=== PATIENT | female | born 1940 | race Caucasian/White ===

== ENCOUNTER → 2017-01-12 | Outpatient (CLI) | payer MEDICARE, OTHER ==
[~2017-01-12] MED LIST: ATEN5POW MC; FLUT9.9S NS; LORA5SOL4 PO; MELA1TAB SL
--- NOTE | 2017-01-12 12:19 | RAD ---
CT scan of the chest without contrast 01/12/2017 Clinical history: History of lung nodule. Technique: Unenhanced, contiguous, 3 mm axial sections were obtained through the chest and upper abdomen. One or more of the following individualized dose reduction techniques were utilized for this study: 1. Automated exposure control. 2. Adjustment of the mA and/or kV according to patient size. 3. Use of iterative reconstruction technique. Findings: Comparison is made to a CT scan of the abdomen dated 12/25/2014. Mild to moderate scattered atherosclerotic plaque formation is seen involving the thoracic aorta is branches. The thoracic aorta is mildly tortuous but tapers normally. Extensive coronary artery calcifications are seen. The heart is normal in size. No hilar, mediastinal or axillary lymphadenopathy is noted. There is a small to moderate-sized sliding hiatal hernia. A 8 mm pleural-based nodular opacity is seen involving the right lower lobe, unchanged. No additional pulmonary nodule is seen. No area of consolidation is noted. No pneumothorax or pleural effusion is seen. Images through the upper abdomen demonstrate moderate atherosclerotic calcification of the abdominal aorta. A 8 mm rounded low-attenuation lesion is seen involving the right lobe of the liver consistent with a hepatic cyst. Degenerative changes are seen involving the thoracic spine. Impression: Stable CT appearance of the 8 mm pleural-based nodular opacity involving the right lower lobe. No acute abnormality is seen.
== END | disposition home or self-care (01) ==
LOC: CT 09:49
PROVIDERS: ATTEND Family Medicine
DX: R91.1 Solitary pulmonary nodule (principal); I25.10 Atherosclerotic heart disease of native coronary artery without angina pectoris; K44.9 Diaphragmatic hernia without obstruction or gangrene; I70.0 Atherosclerosis of aorta; M47.894 Other spondylosis, thoracic region
CPT/HCPCS: 71250

== ENCOUNTER → 2017-06-11 | Outpatient (CLI) | payer MEDICARE, OTHER ==
--- NOTE | 2017-06-11 15:52 | RAD ---
DATE: June 11, 2017 EXAM: MAMMO EMILY SCREENING BILATERAL HISTORY: Screening study. COMPARISON: 2015 and 2017. This study was interpreted with the benefit of Computerized Aided Detection (CAD). 2-D digital mammographic views of both breasts were performed in the CC and MLO projections. 3-D digital tomosynthesis of both breasts were performed in the CC and MLO projections and reviewed on a computer workstation. FINDINGS: The breast parenchyma is scattered and mildly dense. There are no dominant suspicious masses, suspicious microcalcifications or evidence of architectural distortion. IMPRESSION: No mammographic indicators for malignancy. BI-RADS CATEGORY: 1 NEGATIVE RECOMMENDED FOLLOW-UP: 12M 12 MONTH FOLLOW-UP PQRS compliance statement: Patient information was entered into a reminder system with a target due date June 12, 2018 for the next mammogram. Mammography is a sensitive method for finding small breast cancers, but it does not detect them all and is not a substitute for careful clinical examination. A negative mammogram does not negate a clinically suspicious finding and should not result in delay in biopsying a clinically suspicious abnormality. "Our facility is accredited by the [employer] Mammography Program." The patient's breast density may affect the ability of mammography to detect breast cancer. There are 4 categories of breast density, A, B, C and D. Breast density A means that most of the breast tissue is replaced with adipose tissue and therefore is not dense. Breast density B means that the breast tissue is mildly dense and scattered. Breast density C means that the breast tissue is heterogeneously dense. Breast density D means that the breast tissue is very dense. Breast densities especially C and D may decrease the sensitivity of mammography to detect breast cancer. Therefore, the patient may benefit from 3-D breast mammography (3D breast tomography) as a part of their screening mammogram. Insurance may or may not pay for this additional imaging. The patient's breast density based on today's mammogram is category B.
== END | disposition home or self-care (01) ==
LOC: MAMMO 14:06
PROVIDERS: ATTEND Family Medicine
DX: Z12.31 Encounter for screening mammogram for malignant neoplasm of breast (principal)
CPT/HCPCS: 77063; 77067

== ENCOUNTER → 2017-08-02 | Outpatient (CLI) | payer MEDICARE, OTHER ==
--- NOTE | 2017-08-02 16:39 | RAD ---
Chest, 2 views, 08/02/2017: History: Cough The heart size is normal. There is a retrocardiac density suggesting a moderate sized hiatal hernia. There is tortuosity of the thoracic aorta. No pulmonary infiltrate is seen. There is no evidence of pleural fluid. Moderate degenerative change is present in the spine. IMPRESSION: 1. Moderate sized hiatal hernia. 2. No acute cardiopulmonary abnormality is detected.
== END | disposition home or self-care (01) ==
LOC: DXRAD 15:33
PROVIDERS: ATTEND Family Medicine
DX: K44.9 Diaphragmatic hernia without obstruction or gangrene (principal); I77.810 Thoracic aortic ectasia
CPT/HCPCS: 71046

== ENCOUNTER → 2017-08-13 | Outpatient (CLI) | payer MEDICARE, OTHER ==
--- NOTE | 2017-08-13 10:06 | RAD ---
CT sinus without contrast History: Sinus drainage, pain at left cheek and under the eye. Technique: CT of the sinuses was performed without intravenous contrast. Axial, sagittal, and coronal reconstructions were obtained. Exposure: One or more of the following individualized dose reduction techniques were utilized for this examination: 1. Automated exposure control 2. Adjustment of the mA and/or kV according to patient size 3. Use of iterative reconstruction technique Findings: There is mild mucosal thickening of the right ostiomeatal unit. Left ostiomeatal unit is patent. There is mild right maxillary sinus mucosal thickening. There is opacification of the inferior half of the left maxillary sinus. Within the left maxillary sinus secretions, curvilinear calcification is seen. Bilateral frontal sinuses are clear. Ethmoid air cells are clear as is the sphenoid sinus. No mucoperiosteal reaction is identified. IMPRESSION: 1. Moderate-severe left and mild right maxillary sinus disease. The left maxillary sinus secretions demonstrate presence of calcification. Electronically signed by: Aakash Iniguez MD (08/13/2017 10:03 AM) [place] [id number]
== END | disposition home or self-care (01) ==
LOC: CT 07:49
PROVIDERS: ATTEND Family Medicine
DX: J32.0 Chronic maxillary sinusitis (principal)
CPT/HCPCS: 70486

== ENCOUNTER → 2017-09-18 | Outpatient (CLI) | payer MEDICARE ==
--- NOTE | 2017-09-18 10:51 | RAD ---
EXAM: Maxillofacial bone CT without contrast. HISTORY: Sinusitis. TECHNIQUE: Computed tomographic images of the paranasal sinuses were obtained without contrast. *One or more of the following individualized dose reduction techniques were utilized for this examination: 1. Automated exposure control. 2. Adjustment of the mA and/or kV according to patient size. 3. Use of iterative reconstruction technique. COMPARISON: 08/13/2017. FINDINGS: There is a large left maxillary sinus mucous retention cyst containing calcification, suggesting a possible superimposed fungal etiology. There is no sinus air-fluid level. The ostiomeatal units are patent. The nasal septum is midline. The mastoid air cells are clear. The orbits are unremarkable. There is no mass effect or midline shift. There is no hydrocephalus. No calvarial lesion is seen. There is mild age-appropriate cerebral volume loss. There are tortuous cavernous internal carotid arteries, a normal variant. IMPRESSION: Stable large left maxillary sinus mucous retention cyst, possibly related to fungal sinusitis given the presence of calcification. Electronically signed by: Christina Roberts MD (09/18/2017 10:48 AM) [id number]
== END | disposition home or self-care (01) ==
LOC: CT 09:42
PROVIDERS: ATTEND Otolaryngology
DX: J32.0 Chronic maxillary sinusitis (principal); I10 Essential (primary) hypertension
CPT/HCPCS: 70486

== ENCOUNTER 2018-04-08 20:10 | Inpatient (IN) | payer MEDICARE ==
[~2018-04-08] VITALS: Ht 167.6 cm; Wt 72.7 kg
[~2018-04-08 20:10] MED LIST changes: -LORA5SOL4 PO; +LORA5SOL43 PO
--- NOTE | 2018-04-08 20:14 | ED.ADGEN ---
Past History Past Medical History: Hypertension, TIA Adult General Chief Complaint Chief Complaint "..I was at [employer].. and on way home at 530 or so.. I noticed I was having problems remembering.. I could not remember the name of my granddaughter.. or my son in law... was a little confused.. I had trouble finding the words.. I could not order my hamburger.. [place] fries... I just could not find the word.. If some told me or reminded me I could say the word without problems.. I had a episode like this about 12 yrs ago. . they said it was a TIA... " HPI HPI Patient is a 77 year old female who presents with above hx and complaints of memory and expressive aphasia. Episodes seem to start around 1730 hrs. and still present at 1900 hrs. Patient reports previous episode of TIA 12 years ago. At that time underwent a workup. Since that time she is on Plavix and a daily baby aspirin. Patient also has history of hypertension and cardiac disorder and follows with Dr. Guajardo. . Patient currently reports resolution of her symptoms. Family who accompany patient reports that she is back nearly to her baseline. Patient reports no weakness in the limbs or sensation changes. Patient normally follows with Dr. Dos Santos locally.. Patient denies any fever or chills. Patient denies any trauma. Review of Systems Review of Systems Constitutional: Denies fever or chills [] Eyes: Denies change in visual acuity, redness, or eye pain [] HENT: Denies nasal congestion or sore throat [] Respiratory: Denies cough or shortness of breath [] Cardiovascular: No additional information not addressed in HPI [] GI: Denies abdominal pain, nausea, vomiting, bloody stools or diarrhea [] : Denies dysuria or hematuria [] Musculoskeletal: Denies back pain or joint pain [] Integument: Denies rash or skin lesions [] Neurologic: Denies headache, focal weakness or sensory changes []complaints of memory lapses and expressive aphasia Endocrine: Denies polyuria or polydipsia [] All other systems were reviewed and found to be within normal limits, except as documented in this note. Family History Family History Noncontributory Current Medications Current Medications Current Medications Medications (Trade) Dose Ordered Sig/Wiley Start Time Stop Time Status Last Admin Dose Admin Enoxaparin Sodium (Lovenox 80mg Syringe) 70 mg 1X ONCE 04/08/18 21:15 04/08/18 21:16 DC 04/08/18 21:52 70 MG Ondansetron HCl (Zofran) 4 mg PRN Q4HRS PRN 04/08/18 21:45 04/09/18 21:44 Potassium Chloride (KCl Oral Soln) 40 meq 1X ONCE 04/08/18 21:45 04/08/18 21:46 DC 04/08/18 21:51 40 MEQ Allergies Allergies Allergies Coded Allergies Type Severity Reaction Last Updated Verified lisinopril Allergy Unknown 12/25/14 Yes Physical Exam Physical Exam Constitutional: no acute distress, non-toxic appearance. [] HENT: Normocephalic, atraumatic, bilateral external ears normal, oropharynx moist, no oral exudates, nose normal. []No temporal artery tenderness Eyes: PERRLA, EOMI, conjunctiva normal, no discharge. [] Neck: Normal range of motion, no tenderness, supple, no stridor. [] No bruits appreciated in carotids. Cardiovascular:Heart rate regular rhythm, no murmur [PMI to the left Lungs & Thorax: Bilateral breath sounds equal at apexes on auscultation [] Abdomen: Bowel sounds normal, soft, no tenderness, no masses, no pulsatile masses. [] Skin: Warm, dry, no erythema, no rash. [] Back: No tenderness, no CVA tenderness. [] Extremities: No tenderness, no cyanosis, no clubbing, ROM intact, no edema. [] Neurologic: Alert and oriented X 3, normal motor function, normal sensory function, no focal deficits noted other than her complaints of memory lapses and expressive aphasia. Director Of Analytical Development are equal. No problems with ambulation. Psychologic: Affect anxious, judgement normal, mood normal. [] Current Patient Data Vital Signs Vital Signs Date Time Temp Pulse Resp B/P (MAP) Pulse Ox O2 Delivery O2 Flow Rate FiO2 04/08/18 22:19 60 18 125/85 (98) 98 Room Air 04/08/18 20:18 98.4 Lab Results Laboratory Tests Test 04/08/18 20:23 04/08/18 20:45 White Blood Count 6.5 x10^3/uL (4.0-11.0) Red Blood Count 4.83 x10^6/uL (3.50-5.40) Hemoglobin 14.5 g/dL (12.0-15.5) Hematocrit 43.3 % (36.0-47.0) Mean Corpuscular Volume 90 fL (79-100) Mean Corpuscular Hemoglobin 30 pg (25-35) Mean Corpuscular Hemoglobin Concent 34 g/dL (31-37) Red Cell Distribution Width 13.7 % (11.5-14.5) Platelet Count 189 x10^3/uL (140-400) Neutrophils (%) (Auto) 60 % (31-73) Lymphocytes (%) (Auto) 30 % (24-48) Monocytes (%) (Auto) 6 % (0-9) Eosinophils (%) (Auto) 3 % (0-3) Basophils (%) (Auto) 1 % (0-3) Neutrophils # (Auto) 3.9 x10^3uL (1.8-7.7) Lymphocytes # (Auto) 2.0 x10^3/uL (1.0-4.8) Monocytes # (Auto) 0.4 x10^3/uL (0.0-1.1) Eosinophils # (Auto) 0.2 x10^3/uL (0.0-0.7) Basophils # (Auto) 0.1 x10^3/uL (0.0-0.2) Erythrocyte Sedimentation Rate 3 (0-25) Prothrombin Time 10.5 SEC (9.4-11.4) Prothrombin Time INR 1.1 (0.9-1.1) PTT 25 SEC (23-33) Sodium Level 139 mmol/L (136-145) Potassium Level 3.3 mmol/L (3.5-5.1) L Chloride Level 101 mmol/L (98-107) Carbon Dioxide Level 30 mmol/L (21-32) Anion Gap 8 (6-14) Blood Urea Nitrogen 16 mg/dL (7-20) Creatinine 0.8 mg/dL (0.6-1.0) Estimated GFR (Cockcroft-Gault) 69.9 Glucose Level 135 mg/dL (70-99) H Calcium Level 8.6 mg/dL (8.5-10.1) Magnesium Level 1.8 mg/dL (1.8-2.4) Ammonia 16 mcmol/L (11-34) Creatine Kinase 102 U/L (26-192) Troponin I Quantitative < 0.017 ng/mL (0-0.055) VI-Bfb-Z-Type Natriuretic Peptide 193 pg/mL (0-449) Ethyl Alcohol Level < 10 mg/dL (0-10) Urine Collection Type Unknown Urine Color Straw Urine Clarity Clear Urine pH 6.0 Urine Specific [place] <=1.005 Urine Protein Neg (NEG-TRACE) Urine Glucose (UA) Neg mg/dL (NEG) Urine Ketones (Stick) Neg mg/dL (NEG) Urine Blood Small (NEG) Urine Nitrite Neg (NEG) Urine Bilirubin Neg (NEG) Urine Urobilinogen Dipstick 0.2 mg/dL (0.2 mg/dL) Urine Leukocyte Esterase Trace (NEG) Urine RBC 1-2 /HPF (0-2) Urine WBC 1-4 /HPF (0-4) Urine Squamous Epithelial Cells Few /LPF Urine Bacteria 0 /HPF (0-FEW) Urine Opiates Screen Neg (NEG) Urine Methadone Screen Neg (NEG) Urine Barbiturates Neg (NEG) Urine Phencyclidine Screen Neg (NEG) Urine Amphetamine/Methamphetamine Neg (NEG) Urine Benzodiazepines Screen Neg (NEG) Urine Cocaine Screen Neg (NEG) Urine Cannabinoids Screen Neg (NEG) Urine Ethyl Alcohol Neg (NEG) EKG EKG My interpretation of EKG shows a sinus rhythm at 65 bpm. There is some nonspecific anterior septal changes. But no findings of acute STEMI with contralateral changes[] Radiology/Procedures Radiology/Procedures My interpretation chest x-ray shows no acute cardio pulmonary findings. My interpretation of CT of head shows no shift, mass, edema, bleed or fracture. No obvious findings of acute CVA. Review formal report when available. Carotid Dopplers completed in the emergency department showed no significant plaque. See formal report when available Course & Med Decision Making Course & Med Decision Making Pertinent Labs and Imaging studies reviewed. (See chart for details) Discussed presentation, testing and treatment plan with . Will admit for further eval. and tx. Obtain Neuro consult. [] Final Impression Final Impression 1. Mental Status Change 2. TIA 3. Hypokalemia 3.3 4. [Hx. HTN Dragon Disclaimer Dragon Disclaimer This electronic medical record was generated, in whole or in part, using a voice recognition dictation system. CHARLIE PANIAGUA MD Apr 08, 2018 20:14
--- NOTE | 2018-04-08 20:49 | RAD ---
CT Head W/O Contrast: History: Mental status change, memory loss Comparison: none Axial images were obtained without contrast. There is mild diffuse atrophy. There is no mass effect, extraaxial fluid collections or hydrocephalus. There is no gross bleed. Mild, patchy periventricular and subcortical white matter hypoattenuation is seen. There is no focal loss of mota-white matter distinction to suggest acute ischemia, i.e. stroke. Impression: No acute findings. PQRS Compliance Statement: One or more of the following individualized dose reduction techniques were utilized for this examination: 1. Automated exposure control 2. Adjustment of the mA and/or kV according to patient size 3. Use of iterative reconstruction technique Electronically signed by: Uriel Ruiz III, MD (04/08/2018 8:45 PM) [facility]
[2018-04-08 20:50] LABS: BASO # 0.1 x10^3/uL (0.0-0.2); BASO % 1 % (0-3); EOS # 0.2 x10^3/uL (0.0-0.7); EOS % 3 % (0-3); HEMATOCRIT 43.3 % (36.0-47.0); HEMOGLOBIN 14.5 g/dL (12.0-15.5); LYMPH % 30 % (24-48); MEAN CORPUSCULAR HEMOGLOBIN 30 pg (25-35); MEAN CORPUSCULAR HGB CONC 34 g/dL (31-37); MEAN CORPUSCULAR VOLUME 90 fL (79-100); MONO # 0.4 x10^3/uL (0.0-1.1); MONO % 6 % (0-9); NEUT # 3.9 x10^3uL (1.8-7.7); NEUT % 60 % (31-73); PLATELET COUNT 189 x10^3/uL (140-400); RED BLOOD COUNT 4.83 x10^6/uL (3.50-5.40); RED CELL DISTRIBUTION WIDTH 13.7 % (11.5-14.5); WHITE BLOOD COUNT 6.5 x10^3/uL (4.0-11.0)
--- NOTE | 2018-04-08 21:07 | EKG ---
[address] [address] Test Date: 2018-04-08 Test Time: 21:04:31 Pat Name: JUS FARIAS Department: Room: Gender: F Consulting Solution Manager: : 1940 Requested By: CHARLIE PANIAGUA Order Number: [id number] Reading MD: Terry Beckham Measurements Intervals [place] Rate: 65 P: 45 [place]: 214 QRS: 12 QRSD: 84 T: 18 QT: 394 QTc: 410 Interpretive Statements SINUS RHYTHM NONSPECIFIC ST-T WAVE CHANGES. Electronically Signed On 04-10-2018 9:14:55 DELIVERY ROOM SUPERVISOR by Terry Beckham
[2018-04-08 21:12] LABS: CALCIUM 8.6 mg/dL (8.5-10.1); CREATININE 0.8 mg/dL (0.6-1.0); GFR 69.9; MAGNESIUM 1.8 mg/dL (1.8-2.4); POTASSIUM 3.3 mmol/L (3.5-5.1)
[2018-04-08] MEDS ORDERED: ENOXAPARIN ** NOTE DOSE ** SYRINGE SQ ONE (21:15)
[2018-04-08 21:34] LABS: AMPHETAMINE/METHAMPHETAMINE NEG (NEG); BARBITURATES NEG (NEG); BENZODIAZEPINES NEG (NEG); CANNABINOIDS NEG (NEG); COCAINE NEG (NEG); METHADONE NEG (NEG); OPIATES NEG (NEG); PHENCYCLIDINE NEG (NEG)
[2018-04-08] MEDS ORDERED: POTASSIUM CHLORIDE 20 MEQ/15 ML ORAL LIQUID. PO ONE (21:45)
[2018-04-08] MEDS ORDERED: ONDANSETRON PF 4 MG/2 ML VIAL. IV PRN (21:45)
[2018-04-08 21:46] LABS: BACTERIA,URINE 0 /HPF (0-FEW); BILIRUBIN,URINE NEG (NEG); CLARITY,URINE CLEAR; COLOR,URINE STRAW; GLUCOSE,URINE NEG (NEG); NITRITE,URINE NEG (NEG); SQUAMOUS EPITHELIAL CELL,UR FEW /LPF; UROBILINOGEN,URINE 0.2 mg/dL (0.2 mg/dL)
[2018-04-08 22:34] LABS: SEDIMENTATION RATE 3 (0-25)
[2018-04-08] MEDS ORDERED: CEPHALEXIN 250 MG CAPSULE PO ONE (23:00)
--- NOTE | 2018-04-08 23:32 | RAD ---
Bilateral Duplex Carotid Ultrasound Indication: MEMOREY LOSS, ALTERED MENTAL STATUS Procedure: Two dimensional, duplex and color-flow images and spectral analysis are obtained of the carotid arteries bilaterally. Vertebral arteries are also imaged. Findings: Right Carotid: The 2 D images demonstrate mild plaquing with no evidence of significant narrowing. The color images are normal without turbulence or jet effect. On the right ICA peak systolic velocity is 108 cm/sec. I The ICA/CCA ratio is 1.1 . Left Carotid: The 2 D images demonstrate mild plaquing with no evidence of significant narrowing. The color images are normal without turbulence or jet effect. On the left ICA peak systolic velocity is 62 cm/sec. The ICA/CCA ratio is 0.9 . Vertebral Arteries: The right vertebral artery is normal with normal direction of flow. The left vertebral artery is normal with normal direction of flow. Impression: Normal carotid ultrasound with no hemodynamically significant stenosis. PQRS Compliance Statement - Stenosis calculations for CT, MR and conventional angiography are based upon measurement of the distal ICA diameter in accordance with the NASCET methodology. Stenosis calculations for carotid ultrasound studies are derived from validated velocity criteria which are known to correlate with the NASCET methodology. Electronically signed by: Uriel Ruiz III, MD (04/08/2018 11:29 PM) [facility]
[2018-04-08 23:44] VITALS: BP 128/79
--- NOTE | 2018-04-08 23:44 | RAD ---
PORTABLE CHEST 1V Clinical History: Mental status change, memory loss Technique: AP view of the chest was obtained at 04/08/2018 8:14 PM. Comparison: August 02, 2017. Findings: The cardiomediastinal silhouette is normal. The pulmonary vasculature is normal. The lungs and pleural margins are clear. There is a moderate size hiatal hernia. Impression: No evidence of an acute cardiopulmonary process. Electronically signed by: Uriel Ruiz III, MD (04/08/2018 11:41 PM) [facility]
[2018-04-09] MEDS ORDERED: CHOL2000 PO (00:53)
[2018-04-09] MEDS ORDERED: CELE-20 PO (00:53)
[2018-04-09] MEDS ORDERED: LACT1CAP21 PO (00:53)
[2018-04-09] MEDS ORDERED: ATOR40TA59 PO (00:53)
[2018-04-09] MEDS ORDERED: ESOM20CA PO (00:53)
[2018-04-09] MEDS ORDERED: GLUC100018 PO (00:53)
[2018-04-09] MEDS ORDERED: LEVO50TA5 PO (00:53)
[2018-04-09] MEDS ORDERED: LORA10TA68 PO (00:53)
[2018-04-09] MEDS ORDERED: CLOP75TA PO (00:53)
[2018-04-09] MEDS ORDERED: ASPI81TA50 PO (00:53)
[2018-04-09] MEDS ORDERED: ATEN25TA PO (00:53)
[2018-04-09] MEDS ORDERED: LOSA50TA7 PO (00:53)
[2018-04-09 05:25] VITALS: BP 119/61
[2018-04-09] MEDS ORDERED: LEVOTHYROXINE 50 MCG TABLET PO SCH ×2 (06:00→10:00)
[2018-04-09 06:42] LABS: CALCIUM 8.4 mg/dL (8.5-10.1); CREATININE 0.8 mg/dL (0.6-1.0); GFR 69.9; POTASSIUM 4.1 mmol/L (3.5-5.1)
[2018-04-09 06:48] LABS: BASO % 1 % (0-3); EOS # 0.2 x10^3/uL (0.0-0.7); EOS % 3 % (0-3); HEMOGLOBIN 12.8 g/dL (12.0-15.5); LYMPH # 2.1 x10^3/uL (1.0-4.8); LYMPH % 41 % (24-48); MEAN CORPUSCULAR HEMOGLOBIN 30 pg (25-35); MEAN CORPUSCULAR HGB CONC 34 g/dL (31-37); MEAN CORPUSCULAR VOLUME 89 fL (79-100); MONO # 0.4 x10^3/uL (0.0-1.1); MONO % 7 % (0-9); NEUT # 2.5 x10^3uL (1.8-7.7); NEUT % 48 % (31-73); PLATELET COUNT 170 x10^3/uL (140-400); RED BLOOD COUNT 4.25 x10^6/uL (3.50-5.40); RED CELL DISTRIBUTION WIDTH 13.5 % (11.5-14.5); WHITE BLOOD COUNT 5.1 x10^3/uL (4.0-11.0)
[2018-04-09] MEDS ORDERED: LEVOTHYROXINE 50 MCG TABLET ONE (07:50)
[2018-04-09] MEDS ORDERED: LEVOTHYROXINE 75 MCG TABLET ONE (07:50)
[2018-04-09] MEDS ORDERED: PANTOPRAZOLE 40 MG TABLET. PO ONE (07:50)
[2018-04-09] MEDS ORDERED: GLUCOSAMINE 500 MG CAPSULE PO SCH (09:00)
[2018-04-09] MEDS ORDERED: ASPIRIN 81 MG TAB.CHEW PO SCH (09:00)
[2018-04-09] MEDS ORDERED: CLOPIDOGREL BISULFATE 75 MG TABLET PO SCH ×2 (09:00)
[2018-04-09] MEDS ORDERED: ENOXAPARIN ** NOTE DOSE ** SYRINGE SQ SCH (09:00)
[2018-04-09] MEDS ORDERED: LACTOBACILLUS RHAMNOSUS GG 1 CAPSULE. PO SCH (09:00)
[2018-04-09] MEDS ORDERED: LOSARTAN 50 MG TABLET. PO SCH (09:00)
[2018-04-09] MEDS ORDERED: CHOLECALCIFEROL (VITAMIN D3) 1,000 UNIT TABLET PO SCH (09:00)
[2018-04-09] MEDS ORDERED: CELECOXIB 100 MG CAPSULE PO SCH (09:00)
[2018-04-09 10:58] VITALS: BP 117/80
--- NOTE | 2018-04-09 12:54 | SSS ---
ADMIT DATE: 04/09/2018 HISTORY OF PRESENT ILLNESS: The patient is a 77-year-old female patient, who basically was brought to the Emergency Room complaining of having trouble finding the words. After she finished her yoga she went to [facility], but could not remember her favorite hamburger and apparently she had similar episode about 12 years ago. At that time, her episode started about and she arrived to the Emergency Room about 7:00. The patient's previous episode of TIA was about 12 years ago. At that time, she underwent a workup and since that time she is on Plavix and daily baby aspirin. The patient also has history of hypertension, cardiac disorder, and follows with Dr. Guajardo. By the time she arrived to the Emergency Room her symptoms have resolved and her family apparently stated that she is back to her baseline. Denied any tingling or numbness. Denied any loss of sensation or weakness. Denied any blurring of vision. Denied any fall or trauma. She was investigated in the Emergency Room. She had had CT scan of the head, which basically showed that there are no acute changes. She also was admitted and underwent bilateral carotid Doppler ultrasound and we did consult Dr. Blank; however, her symptoms have completely resolved and a decision was made to discharge her home to continue all her current medication. PAST MEDICAL HISTORY: Significant for transient ischemic attack about 12 years ago. She is known to have hypertension, hyperlipidemia, coronary artery disease, status post PCI with stent deployment, hypothyroidism, hiatal hernia and acid reflux and seasonal allergies. She is also known to have osteoarthritis. PAST SURGICAL HISTORY: Significant for PCI and stent deployment, total abdominal hysterectomy, tonsillectomy, bilateral cataract extraction, sinus surgery with polypectomy. She has surgery also on her left foot. She underwent also esophagogastroduodenoscopy and colonoscopy with polypectomy. ALLERGIES: She is allergic to LISINOPRIL. MEDICATIONS: She is currently on following medications: She is on cetirizine. She is on loratadine 10 mg once a day, atorvastatin calcium 40 mg once a day, atenolol 25 mg once a day, lactobacillus rhamnosus 1 capsule once a day, glucosamine sulfate 2000 mg daily, vitamin D 2000 international units once a day, Celebrex 200 mg once a day, losartan potassium 50 mg once a day, Plavix 75 mg once a day, aspirin 81 mg once a day and levothyroxine 50 mcg once a day. FAMILY HISTORY: One older brother healthy. Her half brother has COPD and other problems. Her father in his 40s due to myocardial infarction. Her mother in her 70s. SOCIAL HISTORY: She has 2 daughters and 1 son. She smoked for about 15 years, quit when she was 33 years old. She does not drink alcohol. She used to work as a social media senior associate. REVIEW OF SYSTEMS: The patient denied any blurring of vision. She has bilateral cataract extraction, but denied any glaucoma or macular degeneration. Denied any earache, tinnitus or sensorineural deafness. Denied any nosebleeds, stuffy nose or postnasal drip. Denied any sore throat, sore tongue, toothache, hoarseness of voice or difficulty swallowing. Denied any nausea, vomiting, diarrhea or constipation. Denied any hematemesis, melena or hematochezia. Denied any dysuria, frequency or hematuria. Denied any chest pain, shortness of breath, orthopnea, paroxysmal nocturnal dyspnea. Denied any cough, phlegm or hemoptysis. Denied chills, rigors or fever. PHYSICAL EXAMINATION: GENERAL: On examining her, she looked well and was clearly in no apparent respiratory distress. No pallor, jaundice, cyanosis, or thyromegaly. No jugular venous distension. No limb edema. VITAL SIGNS: Her heart rate was 58, blood pressure was 128/79, temperature was 98.2, respiratory rate was 18 and oxygen saturation was 95% on room air. HEAD, EYES, EARS, NOSE AND THROAT: Showed normocephalic, atraumatic. NECK: Supple. HEART: Showed normal first and second heart sounds with no gallop, rub or murmur. CHEST: Clear to auscultation. No crepitation or rhonchi. ABDOMEN: Slightly distended, soft, nontender. NEUROLOGIC: She was awake, alert, responding appropriately. All cranial nerves intact. EXTREMITIES: She moves her extremities without difficulty. She ambulates without assistance or assistive devices. LABORATORY DATA: On arrival showed a white cell count of 6500, hemoglobin 14.5, hematocrit 43, MCV 90, and platelet count of 189,000. Her serum sodium 140, potassium 4.1, chloride 104, bicarbonate 28, anion gap of 8, BUN 13, creatinine 0.8, estimated GFR was 70 mL per minute. Her glucose 113, calcium was 8.4. Her ammonia was 16. Troponin less than 0.017. Her beta natriuretic peptide was 193. Her prothrombin time was 10.5, INR 1.1, aPTT was 25. Her urinalysis was essentially unremarkable. Her toxic screen was essentially negative. She has had a CT scan of the head, which was basically unremarkable and showed mild diffuse atrophy. There is no mass effect, extraaxial fluid collection or hydrocephalus. There is no gross bleed, mild patchy periventricular and subcortical white matter hypoattenuation is seen. There is no focal loss of hawkins white matter distinction to suggest acute ischemia. She did have bilateral carotid Doppler ultrasound, which basically showed normal carotid ultrasound with no hemodynamically significant stenosis. Her chest x-ray showed that the cardiomediastinal silhouette is normal. The pulmonary vasculature is normal. The lungs and pleural images and margins are clear. There is moderate sized hiatal hernia. ASSESSMENT AND PLAN: In summary, this is a 77-year-old female patient came with suppressive aphasia that apparently lasted about 2 hours that her symptoms are completely resolved by the time she arrived to the Emergency Room. She was discharged back to continue all her medication and follow with the primary care physician. FINAL DISCHARGE DIAGNOSES: Transient ischemic attack, presented with increased aphasia that has resolved. She has hypertension, hyperlipidemia, coronary artery disease, status post PCI with stent deployment, hypothyroidism, osteoarthritis, hiatal hernia. FRANNIE SWANN MD DR: GARLAND/jose raul JOB#: [id number] / [id number]
[2018-04-09] MEDS ORDERED: ATENOLOL 25 MG TABLET PO SCH (21:00)
[2018-04-09] MEDS ORDERED: ATORVASTATIN CALCIUM 20 MG TABLET PO SCH (21:00)
[2018-04-09] MEDS ORDERED: CETIRIZINE HCL 10 MG TABLET PO SCH (21:00)
[2018-04-10] MEDS ORDERED: PANTOPRAZOLE 40 MG TABLET. PO SCH (07:30)
== END 2018-04-09 13:15 | disposition home or self-care (01) | DRG 69 ==
LOC: ER 20:10 → 1 SOUTH 22:45
PROVIDERS: ADMIT Internal Medicine; ATTEND Internal Medicine
DX: G45.9 Transient cerebral ischemic attack, unspecified (principal); R47.01 Aphasia; E03.9 Hypothyroidism, unspecified; E78.5 Hyperlipidemia, unspecified; I10 Essential (primary) hypertension; I25.10 Atherosclerotic heart disease of native coronary artery without angina pectoris; K21.9 Gastro-esophageal reflux disease without esophagitis; Z79.02 Long term (current) use of antithrombotics/antiplatelets; M19.90 Unspecified osteoarthritis, unspecified site; J30.2 Other seasonal allergic rhinitis; Z82.49 Family history of ischemic heart disease and other diseases of the circulatory system; Z82.5 Family history of asthma and other chronic lower respiratory diseases; Z86.73 Personal history of transient ischemic attack (TIA), and cerebral infarction without residual deficits; Z90.710 Acquired absence of both cervix and uterus; Z95.5 Presence of coronary angioplasty implant and graft; Z98.41 Cataract extraction status, right eye; Z98.42 Cataract extraction status, left eye; Z87.891 Personal history of nicotine dependence
CPT/HCPCS: 36415; 70450; 71045; 80048; 80061; 80307; 81001; 82140; 82550; 83735; 83880; 84484; 85025; 85610; 85651; 85730; 87040; 87086; 93005; 93880; G0480; J1650; 97116

== ENCOUNTER 2018-05-19 07:43 | Emergency (ER) | payer MEDICARE ==
[~2018-05-19] VITALS: Ht 167.6 cm; Wt 71.3 kg
[~2018-05-19 07:43] MED LIST changes: +ASPI81TA50 PO; +ATEN25TA42 PO; +ATOR40TA59 PO; +CELE-20 PO; +CHOL2000 PO; +CLOP75TA PO; +ESOM20CA PO; +GLUC100018 PO; +LACT1CAP21 PO; +LEVO50TA5 PO; +LORA10TA68 PO; +LOSA50TA86 PO
[2018-05-19] MEDS ORDERED: IV NORMAL SALINE 500ML 500 ML IV ONE (08:15)
[2018-05-19] MEDS ORDERED: ONDANSETRON PF 4 MG/2 ML VIAL. IV ONE (08:15)
[2018-05-19 08:37] LABS: BASO # 0.1 x10^3/uL (0.0-0.2); BASO % 1 % (0-3); EOS # 0.1 x10^3/uL (0.0-0.7); EOS % 1 % (0-3); HEMOGLOBIN 14.3 g/dL (12.0-15.5); LYMPH # 0.5 x10^3/uL (1.0-4.8); LYMPH % 5 % (24-48); MEAN CORPUSCULAR HEMOGLOBIN 30 pg (25-35); MEAN CORPUSCULAR HGB CONC 34 g/dL (31-37); MEAN CORPUSCULAR VOLUME 88 fL (79-100); MONO # 0.5 x10^3/uL (0.0-1.1); MONO % 5 % (0-9); NEUT # 8.4 x10^3uL (1.8-7.7); NEUT % 88 % (31-73); PLATELET COUNT 190 x10^3/uL (140-400); RED BLOOD COUNT 4.77 x10^6/uL (3.50-5.40); RED CELL DISTRIBUTION WIDTH 13.7 % (11.5-14.5); WHITE BLOOD COUNT 9.5 x10^3/uL (4.0-11.0)
--- NOTE | 2018-05-19 08:40 | EKG ---
[address] [address] Test Date: 2018-05-19 Test Time: 08:23:19 Pat Name: JUS FARIAS Department: Room: Gender: F Groover And Turner: YOVANA : 1940 Requested By: RAFAT HOWARD Order Number: [id number] Reading MD: Measurements Intervals [place] Rate: 71 P: 24 AL: 168 QRS: 14 QRSD: 90 T: 24 QT: 388 QTc: 422 Interpretive Statements SINUS RHYTHM NORMAL ECG RI6.01 Unconfirmed report No previous ECG available for comparison
[2018-05-19 08:53] LABS: ALBUMIN 3.4 g/dL (3.4-5.0); CALCIUM 8.5 mg/dL (8.5-10.1); CREATININE 0.8 mg/dL (0.6-1.0); GFR 69.9; POTASSIUM 4.1 mmol/L (3.5-5.1); TOTAL BILIRUBIN 1.3 mg/dL (0.2-1.0); TOTAL PROTEIN 6.9 g/dL (6.4-8.2)
--- NOTE | 2018-05-19 09:04 | RAD ---
PQRS Compliance statement: One or more of the following individualized dose reduction techniques were utilized for this examination: 1. Automated exposure control. 2. Adjustment of the mA and/or kV according to patient size. 3. Use of iterative reconstruction technique. Indication:Headache/dizziness with nosebleed TECHNIQUE: CT head without IV contrast COMPARISON:04/08/2018 FINDINGS: No pathologic extra-axial or intra-axial fluid collection. The ventricles and basal cisterns are within normal limits. No acute intracranial bleed. Periventricular white matter changes are seen. No focal loss of mota-white differentiation. 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 Orbits are within normal limits. No suspicious calvarial lesion. The paranasal sinuses and mastoid air cells are clear. IMPRESSION: 1. No acute intracranial bleed. 2. White matter changes likely secondary to chronic microvascular ischemic disease. If concern for acute ischemic stroke is high, please consider MRI brain. Electronically signed by: Cas Arevalo DO (05/19/2018 9:00 AM) [facility]
[2018-05-19 09:49] LABS: BILIRUBIN,URINE NEG (NEG); CLARITY,URINE CLEAR; COLOR,URINE YELLOW; GLUCOSE,URINE NEG (NEG)
[2018-05-19 09:50] LABS: BACTERIA,URINE FEW /HPF (0-FEW); NITRITE,URINE NEG (NEG); SQUAMOUS EPITHELIAL CELL,UR FEW /LPF; UROBILINOGEN,URINE 0.2 mg/dL (0.2 mg/dL)
[2018-05-19 10:20] VITALS: BP 110/60
[2018-05-19] MEDS ORDERED: KETOROLAC 30 MG/ML VIAL. IV ONE (10:30)
[2018-05-19] MEDS ORDERED: IBUP600T16 PO (10:52)
[2018-05-19] MEDS ORDERED: AMOX500C PO (10:52)
[2018-05-19] MEDS ORDERED: ONDA4TAB7 PO (10:52)
--- NOTE | 2018-05-19 10:52 | PHYS DOC ---
Past History Past Medical History: GERD, Hypertension, Hypothyroid, TIA, Other Past Surgical History: Hysterectomy, Other Smoking: Non-smoker Alcohol Use: None Drug Use: None Adult General Chief Complaint Chief Complaint: NAUSEA/VOMITING/DIARRHEA HPI HPI Patient is a 77 year old female who presents with complaining of cough and frontal headache for 3 weeks that getting worse at night. Patient rated her pain 8/10 and denies focal neuro deficit and fever and chills. Patient states she has had chronic diarrhea since March and usually has 3 or 4 episodes of diarrhea every day but since last night had 3 episodes of vomiting that mainly was dry heaving without having food content. Patient states in March of last year she had symptom of TIA and was diagnosed with transient global amnesia and since then has had episodes of bloody nasal drainage with green mucus. Patient states because of history of TGA she had warning symptom of headache and nausea and vomiting and decided to come to ER. Review of Systems Review of Systems Constitutional: Denies fever or chills [] Eyes: Denies change in visual acuity, redness, or eye pain [] HENT: Denies nasal congestion or sore throat [] Respiratory: Denies cough or shortness of breath [] Cardiovascular: No additional information not addressed in HPI [] GI: Denies abdominal pain, bloody stools, reports diarrhea , reports nausea and vomiting[] : Denies dysuria or hematuria [] Musculoskeletal: Denies back pain or joint pain [] Integument: Denies rash or skin lesions [] Neurologic: Reports headache, denies focal weakness or sensory changes [] Endocrine: Denies polyuria or polydipsia [] All other systems were reviewed and found to be within normal limits, except as documented in this note. Current Medications Current Medications Current Medications Medications (Trade) Dose Ordered Sig/Wiley Start Time Stop Time Status Last Admin Dose Admin Ketorolac Tromethamine (Toradol 30mg Vial) 30 mg 1X ONCE 05/19/18 10:30 05/19/18 10:31 DC 05/19/18 10:31 30 MG Ondansetron HCl (Zofran) 4 mg 1X ONCE 05/19/18 08:15 05/19/18 08:19 DC 05/19/18 08:30 4 MG Sodium Chloride 500 ml @ 0 mls/hr 1X ONCE 05/19/18 08:15 05/19/18 08:19 DC 05/19/18 08:30 500 MLS/HR Allergies Allergies Allergies Coded Allergies Type Severity Reaction Last Updated Verified lisinopril Allergy Unknown 12/25/14 Yes Physical Exam Physical Exam Constitutional: Well developed, well nourished, mild distress, non-toxic appearance. [] HENT: Normocephalic, atraumatic, bilateral external ears normal, oropharynx moist, no oral exudates, nose normal. [] Eyes: PERRLA, EOMI, conjunctiva normal, no discharge. [] Neck: Normal range of motion, no tenderness, supple, no stridor. [] Cardiovascular:Heart rate regular rhythm, no murmur [] Lungs & Thorax: Bilateral breath sounds clear to auscultation [] Abdomen: Bowel sounds normal, soft, no tenderness, no masses, no pulsatile masses. [] Skin: Warm, dry, no erythema, no rash. [] Back: No tenderness, no CVA tenderness. [] Extremities: No tenderness, no cyanosis, no clubbing, ROM intact, no edema. [] Neurologic: Alert and oriented X 3, normal motor function, normal sensory function, no focal deficits noted. [] Psychologic: Affect anxious, judgement normal, mood normal. [] Current Patient Data Vital Signs Vital Signs Date Time Temp Pulse Resp B/P (MAP) Pulse Ox O2 Delivery O2 Flow Rate FiO2 05/19/18 07:43 97.7 78 16 96 Room Air Lab Results Laboratory Tests Test 05/19/18 08:15 05/19/18 09:15 White Blood Count 9.5 x10^3/uL (4.0-11.0) Red Blood Count 4.77 x10^6/uL (3.50-5.40) Hemoglobin 14.3 g/dL (12.0-15.5) Hematocrit 42.0 % (36.0-47.0) Mean Corpuscular Volume 88 fL (79-100) Mean Corpuscular Hemoglobin 30 pg (25-35) Mean Corpuscular Hemoglobin Concent 34 g/dL (31-37) Red Cell Distribution Width 13.7 % (11.5-14.5) Platelet Count 190 x10^3/uL (140-400) Neutrophils (%) (Auto) 88 % (31-73) H Lymphocytes (%) (Auto) 5 % (24-48) L Monocytes (%) (Auto) 5 % (0-9) Eosinophils (%) (Auto) 1 % (0-3) Basophils (%) (Auto) 1 % (0-3) Neutrophils # (Auto) 8.4 x10^3uL (1.8-7.7) H Lymphocytes # (Auto) 0.5 x10^3/uL (1.0-4.8) L Monocytes # (Auto) 0.5 x10^3/uL (0.0-1.1) Eosinophils # (Auto) 0.1 x10^3/uL (0.0-0.7) Basophils # (Auto) 0.1 x10^3/uL (0.0-0.2) Prothrombin Time 11.3 SEC (9.4-11.4) Prothrombin Time INR 1.1 (0.9-1.1) Sodium Level 143 mmol/L (136-145) Potassium Level 4.1 mmol/L (3.5-5.1) Chloride Level 106 mmol/L (98-107) Carbon Dioxide Level 28 mmol/L (21-32) Anion Gap 9 (6-14) Blood Urea Nitrogen 20 mg/dL (7-20) Creatinine 0.8 mg/dL (0.6-1.0) Estimated GFR (Cockcroft-Gault) 69.9 BUN/Creatinine Ratio 25 (6-20) H Glucose Level 131 mg/dL (70-99) H Calcium Level 8.5 mg/dL (8.5-10.1) Total Bilirubin 1.3 mg/dL (0.2-1.0) H Aspartate Amino Transferase (AST) 15 U/L (15-37) Alanine Aminotransferase (ALT) 21 U/L (14-59) Alkaline Phosphatase 86 U/L (46-116) Troponin I Quantitative < 0.017 ng/mL (0-0.055) Total Protein 6.9 g/dL (6.4-8.2) Albumin 3.4 g/dL (3.4-5.0) Albumin/Globulin Ratio 1.0 (1.0-1.7) Lipase 341 U/L (73-393) Urine Collection Type Unknown Urine Color Yellow Urine Clarity Clear Urine pH 5.5 Urine Specific [place] 1.020 Urine Protein Neg (NEG-TRACE) Urine Glucose (UA) Neg mg/dL (NEG) Urine Ketones (Stick) Neg mg/dL (NEG) Urine Blood Small (NEG) Urine Nitrite Neg (NEG) Urine Bilirubin Neg (NEG) Urine Urobilinogen Dipstick 0.2 mg/dL (0.2 mg/dL) Urine Leukocyte Esterase Neg (NEG) Urine RBC 6-10 /HPF (0-2) Urine WBC 1-4 /HPF (0-4) Urine Squamous Epithelial Cells Few /LPF Urine Bacteria Few /HPF (0-FEW) Urine Mucus Slight /LPF EKG EKG EKG interpreted by me. EKG at 0 823 showed normal sinus rhythm, no acute ST and T-wave that they've abnormalities Radiology/Procedures Radiology/Procedures [address] [address] IMAGING REPORT Signed PATIENT: JUS FARIAS ACCOUNT: [id number] : 1940 LOCATION: ER AGE: 77 SEX: F EXAM STATUS: REG ER ORD. PHYSICIAN: RAFAT HOWARD MD REASON: headache PROCEDURE: CT HEAD WO CONTRAST PQRS Compliance statement: One or more of the following individualized dose reduction techniques were utilized for this examination: 1. Automated exposure control. 2. Adjustment of the mA and/or kV according to patient size. 3. Use of iterative reconstruction technique. Indication:Headache/dizziness with nosebleed TECHNIQUE: CT head without IV contrast COMPARISON:04/08/2018 FINDINGS: No pathologic extra-axial or intra-axial fluid collection. The ventricles and basal cisterns are within normal limits. No acute intracranial bleed. Periventricular white matter changes are seen. No focal loss of mota-white differentiation. 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 Orbits are within normal limits. No suspicious calvarial lesion. The paranasal sinuses and mastoid air cells are clear. IMPRESSION: 1. No acute intracranial bleed. 2. White matter changes likely secondary to chronic microvascular ischemic disease. If concern for acute ischemic stroke is high, please consider MRI brain. Electronically signed by: Cas Arevalo DO (05/19/2018 9:00 AM) [facility] DICTATED AND SIGNED BY: CAS AREVALO DO DATE: 05/19/18 0857 CC: LORENZO MONCADA MD; RAFAT HOWARD MD ~ Course & Med Decision Making Course & Med Decision Making Pertinent Labs and Imaging studies reviewed. (See chart for details) Evaluation of patient in ER showed 77-year-old female patient with complaining of multiple chronic and acute symptom. Patient had unremarkable CT of head, EKG , labs. Isn't complaining of headache but didn't want to have pain medication but later agreed to have Toradol that did not help her significantly but she didn't want to have any more pain medication in ER or for home. Dragon Disclaimer Dragon Disclaimer This electronic medical record was generated, in whole or in part, using a voice recognition dictation system. Departure Departure: Impression: Primary Impression: Headache Additional Impressions: Nausea and vomiting Chronic diarrhea Disposition: HOME, SELF-CARE (at 1049) Condition: IMPROVED Referrals: LORENZO MONCADA MD (PCP) Patient Instructions: Chronic Diarrhea, Diet for Diarrhea, Adult, General Headache Without Cause, Nausea and Vomiting, Sinus Headache, Sinusitis Additional Instructions: Drink plenty of liquids Follow-up with your primary care physician in 3-5 days Return to ER if not getting better Scripts Ondansetron Hcl (ZOFRAN) 4 Mg Tablet 1 TAB PO Q6HRS for nausea and vomiting, #12 TAB Prov: RAFAT HOWARD MD 05/19/18 Ibuprofen (IBUPROFEN) 600 Mg Tablet 600 MG PO TID for pain, #20 TAB Prov: RAFAT HOWARD MD 05/19/18 Amoxicillin (AMOXICILLIN) 500 Mg Capsule 1 CAP PO TID for infection, #30 CAP Prov: RAFAT HOWARD MD 05/19/18 Problem Qualifiers RAFAT HOWARD MD May 19, 2018 10:52
== END 2018-05-19 11:00 | disposition home or self-care (01) ==
LOC: ER 07:43
DX: R51 Headache (principal); R05 Cough; R11.2 Nausea with vomiting, unspecified; K52.9 Noninfective gastroenteritis and colitis, unspecified; K21.9 Gastro-esophageal reflux disease without esophagitis; I10 Essential (primary) hypertension; E03.9 Hypothyroidism, unspecified; Z86.73 Personal history of transient ischemic attack (TIA), and cerebral infarction without residual deficits; Z88.8 Allergy status to other drugs, medicaments and biological substances
CPT/HCPCS: 36415; 70450; 80053; 81001; 83690; 84484; 85025; 85610; 93005; 96361; 96374; 96375; 99284; J1885; J2405; J7040

== ENCOUNTER → 2018-06-13 | Outpatient (CLI) | payer MEDICARE, OTHER ==
[2018-05-19 10:20] VITALS: BP 110/60
[~2018-06-13] MED LIST changes: +AMOX500C PO; +IBUP600T16 PO; +ONDA4TAB7 PO
--- NOTE | 2018-06-13 10:31 | RAD ---
Indication: Postmenopausal screening for osteoporosis. COMPARISON: None available.. Bone Density: -BMD: - AP Spine Total (L1-L4).......... 1.212 gm/sq cm - Total right Hip................. 690 mg/sq cm.. T-Score: - AP Spine Total (L1-L4)......... 0.3. - Total right Hip................. -2.2. Z-Score: - AP Spine Total (L1-L4).......... 1.9. - Total right Hip................. -0.5. World Health Organization criteria for BMD interpretation classify patients as Normal (T-score at or above -1.0), Osteopenic (T-score between -1.0 and -2.5), or Osteoporotic (T-score at or below -2.5). Impression: 1. AP Spine Total L1-L4--- normal. 2. Total right Hip--- osteopenia. Electronically signed by: Lamont Olsen MD (06/13/2018 10:26 AM) [id number]
--- NOTE | 2018-06-13 13:37 | RAD ---
DATE: 06/13/2018 EXAM: MAMMO EMILY SCREENING BILATERAL HISTORY: Screening Mammogram COMPARISON: Mammogram 06/11/2017, 06/09/2016, 06/08/2015 This study was interpreted with the benefit of Computerized Aided Detection (CAD). The breast parenchyma shows scattered fibroglandular densities. Breast parenchyma level B. FINDINGS: Bilateral digital 2-D and 3-D tomosynthesis CC and MLO views. No suspicious mass, calcification or architectural distortion. No significant change from prior examination . Stable bilateral intramammary lymph nodes. IMPRESSION: No mammographic evidence of malignancy. Recommend routine screening mammogram in 12 months. BI-RADS CATEGORY: 1 NEGATIVE RECOMMENDED FOLLOW-UP: 12M 12 MONTH FOLLOW-UP PQRS compliance statement: Patient information was entered into a reminder system with a target due date for the next mammogram. Mammography is a sensitive method for finding small breast cancers, but it does not detect them all and is not a substitute for careful clinical examination. A negative mammogram does not negate a clinically suspicious finding and should not result in delay in biopsying a clinically suspicious abnormality. "Our facility is accredited by the [employer] Mammography Program."
== END | disposition home or self-care (01) ==
LOC: MAMMO 09:22
PROVIDERS: ATTEND Family Medicine
DX: Z12.31 Encounter for screening mammogram for malignant neoplasm of breast (principal); M85.851 Other specified disorders of bone density and structure, right thigh; Z78.0 Asymptomatic menopausal state
CPT/HCPCS: 77063; 77067; 77080

== ENCOUNTER → 2019-04-21 | Outpatient (CLI) | payer MEDICARE ==
--- NOTE | 2019-04-21 18:08 | RAD ---
EXAM: Supine AP view of the abdomen DATE: 04/21/2019 12:18 PM INDICATION: Constipation, abdominal pain COMPARISON: No Prior FINDINGS: No abnormal small or large bowel dilatation. Moderate colonic stool content. No abnormal soft tissue mass effect. No suspicious calcifications are seen. Evaluation for free intraperitoneal gas is limited on this supine exam. IMPRESSION: 1. No evidence for bowel obstruction. 2. Moderate colonic stool content is seen. Electronically signed by: Brayan Dial MD (04/21/2019 6:05 PM) [id number]
== END | disposition home or self-care (01) ==
LOC: DXRAD 11:05
PROVIDERS: ATTEND Family Medicine
DX: K56.41 Fecal impaction (principal)
CPT/HCPCS: 74018

== ENCOUNTER → 2019-06-16 | Outpatient (CLI) | payer MEDICARE ==
--- NOTE | 2019-06-18 12:04 | RAD ---
History: Routine screening. Technique: Bilateral digital mammographic routine views were obtained with 2-D and 3-D technique and reviewed with CAD - computer aided detection. Comparison: 06/13/2018. Findings: Breast Tissue Density B :The breast tissue is composed of mixed fatty and fibroglandular tissue. There are no suspicious masses, microcalcifications or unexplained areas of architectural distortion. Stable subareolar architectural variation in the left breast is compatible with the patient's history of previous biopsy. Impression: Benign findings on bilateral mammography. No evidence of malignancy. BI-RADS Category 2: Benign. Normal interval followup. A mammogram does not have 100% sensitivity and therefore a negative imaging study should not delay further work up of a suspicious abnormality. The patient will receive a letter with the results in the mail. Patient information is entered into the reminder system with a target due date for the next screening mammogram. The patient will receive a reminder. "Our facility is accredited by the [employer] Mammography Program." BI-RADS 2 -- benign findings
== END | disposition home or self-care (01) ==
LOC: MAMMO 11:23
PROVIDERS: ATTEND Family Medicine
DX: Z12.31 Encounter for screening mammogram for malignant neoplasm of breast (principal); N64.89 Other specified disorders of breast
CPT/HCPCS: 77063; 77067

== ENCOUNTER → 2020-06-18 | Outpatient (CLI) | payer MEDICARE ==
--- NOTE | 2020-06-21 10:28 | RAD ---
DATE: 06/18/2020 12:13 PM EXAM: MAMMO EMILY SCREENING BILATERAL HISTORY: Screening. Personal history of left breast biopsy. No prior breast cancer diagnosis. COMPARISON: 06/16/2019 Bilateral CC and MLO views of the breasts were performed. Bilateral breast tomosynthesis was performed in CC and MLO projections. This study was interpreted with the benefit of Computerized Aided Detection (CAD). FINDINGS: Breast Density: SCATTERED The breast parenchyma shows scattered fibroglandular densities. Breast parenchyma level B No suspicious masses, microcalcifications or architectural distortion is present to suggest malignancy in either breast. The visualized axillae are unremarkable. IMPRESSION: No mammographic evidence of malignancy. BI-RADS CATEGORY: 1 NEGATIVE RECOMMENDED FOLLOW-UP: 12M 12 MONTH FOLLOW-UP Annual screening mammography is recommended, unless clinically indicated sooner based on symptoms or change in physical exam. PQRS compliance statement: Patient information was entered into a reminder system with a target due date for the next mammogram. Mammography is a sensitive method for finding small breast cancers, but it does not detect them all and is not a substitute for careful clinical examination. A negative mammogram does not negate a clinically suspicious finding and should not result in delay in biopsying a clinically suspicious abnormality. "Our facility is accredited by the [employer] Mammography Program."
== END ==
LOC: MAMMO 11:35
PROVIDERS: ATTEND Family Medicine
DX: Z12.31 Encounter for screening mammogram for malignant neoplasm of breast (principal)
CPT/HCPCS: 77063; 77067

== ENCOUNTER → 2020-08-20 | Outpatient (CLI) | payer MEDICARE ==
--- NOTE | 2020-08-21 11:53 | RAD ---
EXAM: XR BILATERAL HIP (WITH OR WITHOUT PELVIS) 2 VIEWS_RIGHT 08/20/2020 4:10 PM CLINICAL INDICATION: Right hip pain post fall COMPARISON: None TECHNIQUE: AP view of the pelvis and AP and frog-leg lateral view of the right hip FINDINGS: No acute fracture. Alignment is normal. 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 There is lower lumbar degenerative disc disease and facet arthrosis. IMPRESSION: No acute osseous abnormality. Electronically signed by: Bonnie Patel MD (08/21/2020 11:51 AM) [id number]
== END ==
LOC: DXRAD 15:59
PROVIDERS: ATTEND Family Medicine
DX: M16.11 Unilateral primary osteoarthritis, right hip (principal); M51.36 Other intervertebral disc degeneration, lumbar region; M47.816 Spondylosis without myelopathy or radiculopathy, lumbar region
CPT/HCPCS: 73502

== ENCOUNTER → 2021-06-20 | Outpatient (CLI) | payer MEDICARE ==
--- NOTE | 2021-06-20 17:12 | RAD ---
Bilateral digital screening 2-D and 3-D (digital breast tomosynthesis) mammogram: Reason for examination: Routine screening. Comparison: Mammograms from 06/18/2020 and 06/16/2019. Interpretation was made with the benefit of CAD. FINDINGS: Breast density: Category B. There are scattered areas of fibroglandular density. No suspicious breast mass, malignant appearing calcifications, or unexplained architectural distortio n is seen. There is a small amount of scarring in the left upper breast best seen on the MLO 3-D imag es about 3 cm above the nipple which is unchanged. This may be related to previous excisional biopsy. IMPRESSION: No evidence of malignancy. Assessment: BI-RADS 2. Benign finding. Recommendation: Routine screening mammograms. The patient will receive a letter with the results in the mail. Patient information will be entered i nto the mammography reminder system with a target recall date for the next mammogram. A reminder gay er will be generated. Electronically signed by: Maliha Goodman MD (06/20/2021 5:10 PM) [id number]
== END ==
LOC: MAMMO 09:52
PROVIDERS: ATTEND Family Medicine
DX: Z12.31 Encounter for screening mammogram for malignant neoplasm of breast (principal)
CPT/HCPCS: 77063; 77067